=== PATIENT | female | born 1990 | race Caucasian/White ===

== ENCOUNTER 2018-01-22 04:35 | Observation (INO) | payer OTHER ==
[~2018-01-22] VITALS: Ht 157.5 cm; Wt 63.5 kg
[2018-01-22] MEDS ORDERED: PREN1TAB78 MT (04:40)
[2018-01-22] MEDS ORDERED: LACTATED RINGERS 1,000 ML IV SCH (05:10)
[2018-01-22] MEDS ORDERED: TERBUTALINE SULFATE 1MG/ML VIAL SUBCUT NR (05:15)
== END 2018-01-22 06:21 | disposition home or self-care (01) ==
LOC: L&D 04:35
PROVIDERS: ADMIT Specialist; ATTEND Specialist
DX: O62.9 Abnormality of forces of labor, unspecified (principal); Z3A.35 35 weeks gestation of pregnancy
CPT/HCPCS: 96360; 96372; 99281; G0378; J3105; J7120; 59412

== ENCOUNTER 2019-01-13 13:51 | Inpatient (IN) | payer MEDICAID, OTHER ==
[~2019-01-13] VITALS: Ht 167.6 cm; Wt 62.6 kg
[~2019-01-13 13:51] MED LIST: PREN1TAB78 MT
[2019-01-13 14:42] LABS: EOSINOPHILS % 0.6 % (0.0-5.0); MEAN CORPUSCULAR HEMOGLOBIN 31.4 pg (28.0-32.0); MEAN CORPUSCULAR VOLUME 91.8 fL (81.0-99.0); MEAN PLATELET VOLUME 10.5 fl (7.4-10.4); MONOCYTES % 7.4 % (2.0-8.0); PLATELET 164 x1000/uL (130-400); RED BLOOD CELL COUNT 4.14 mill/uL (4.2-5.4); RED CELL DISTRIBUTION WIDTH 13.3 % (11.6-14.6)
[2019-01-13 14:43] LABS: CLARITY URINE CLOUDY (CLEAR); COLOR URINE YELLOW (YELLOW); KETONES URINE NEGATIVE (NEGATIVE); LEUKOCYTE ESTERASE URINE NEGATIVE (NEGATIVE); NITRITE URINE NEGATIVE (NEGATIVE); OCCULT BLOOD URINE NEGATIVE (NEGATIVE); PH URINE 7.5 (4.5-8.0); PROTEIN URINE NEGATIVE (NEGATIVE); SPECIFIC GRAVITY URINE 1.023 (1.005-1.030)
[2019-01-13 14:46] LABS: CHLORIDE 111 mEq/L (98-107)
[2019-01-13 14:51] LABS: PROTHROMBIN TIME 10.7 sec (9.6-11.0)
[2019-01-13] MEDS ORDERED: ONDANSETRON HCL 4MG/2ML INJ IV ONE (16:00)
[2019-01-13] MEDS ORDERED: SODIUM CHLORIDE 0.9% 1,000 ML IV ONE (16:00)
[2019-01-13] MEDS ORDERED: MORPHINE SULFATE 4 MG/ML CPJ (NOT FOR IM USE) IV ONE (16:00)
[2019-01-13] MEDS ORDERED: DOCUSATE SODIUM 100MG CAPSULE PO PRN (17:30)
[2019-01-13] MEDS ORDERED: CLONIDINE 0.1MG TABLET PO PRN (17:30)
[2019-01-13] MEDS ORDERED: ACETAMINOPHEN 325MG TABLET PO PRN (17:30)
[2019-01-13] MEDS ORDERED: MAGNESIUM/ALUMINUM HYDROXIDE/SIMETHICONE 30ML UDC PO PRN (17:30)
[2019-01-13] MEDS ORDERED: CEFTRIAXONE 1 G PREMIX 50 ML IV SCH (17:30)
[2019-01-13] MEDS ORDERED: GUAIFENESIN 200MG/10ML SUGAR FREE UDC PO PRN (17:30)
[2019-01-13] MEDS ORDERED: DIPHENHYDRAMINE 50MG/ML VIAL IV PRN (17:30)
[2019-01-13] MEDS ORDERED: ONDANSETRON HCL 4MG/2ML INJ IV PRN (17:30)
[2019-01-13 17:58] LABS: PHOSPHORUS 3.6 mg/dL (2.5-4.9)
[2019-01-13] MEDS: MORPHINE SULFATE 2 MG/ML CPJ (NOT FOR IM USE) IV PRN (20:18)
[2019-01-13] MEDS ORDERED: CEFTRIAXONE 1 G PREMIX 50 ML IV NR (22:00)
[2019-01-13] MEDS: SODIUM CHLORIDE 0.9% 1,000 ML IV SCH (22:32)
[2019-01-13 23:55] VITALS: BP 132/71
[2019-01-14] VITALS: BP 132/71
[2019-01-14 00:14] LABS: CREATINE KINASE 57 IU/L (26-192)
[2019-01-14 00:15] LABS: CREATINE KINASE MB FRACTION < 1.0 ng/mL (0.5-3.6)
[2019-01-14] MEDS: MORPHINE SULFATE 2 MG/ML CPJ (NOT FOR IM USE) IV PRN ×4 (00:45→19:54)
[2019-01-14] MEDS: SODIUM CHLORIDE 0.9% 1,000 ML IV SCH ×2 (01:20→14:51)
[2019-01-14] MEDS ORDERED: HYDR-4001 PO (02:02)
[2019-01-14 04:00] VITALS: BP 105/67
[2019-01-14 08:00] VITALS: BP 99/42
[2019-01-14 08:35] LABS: BASOPHILS % 0.5 % (0.0-2.0); EOSINOPHILS % 0.7 % (0.0-5.0); HEMATOCRIT. 37.6 % (36.0-48.0); HEMOGLOBIN. 12.5 g/dL (12.0-16.0); LYMPHOCYTES % 35.8 % (20.0-50.0); MEAN CORPUSCULAR HEMOGLOBIN 30.7 pg (28.0-32.0); MEAN CORPUSCULAR VOLUME 92.7 fL (81.0-99.0); MEAN PLATELET VOLUME 10.4 fl (7.4-10.4); MONOCYTES % 6.9 % (2.0-8.0); NEUTROPHILS % 56.1 % (40.0-76.0); PLATELET 212 x1000/uL (130-400); RED BLOOD CELL COUNT 4.06 mill/uL (4.2-5.4); RED CELL DISTRIBUTION WIDTH 13.7 % (11.6-14.6)
[2019-01-14 08:57] LABS: CHLORIDE 114 mEq/L (98-107)
[2019-01-14 09:07] LABS: LDL CHOLESTEROL 66 mg/dL (5-100)
[2019-01-14 09:09] LABS: CREATINE KINASE 50 IU/L (26-192); HDL CHOLESTEROL 43 mg/dL (40-59)
[2019-01-14 09:18] LABS: CREATINE KINASE MB FRACTION < 1.0 ng/mL (0.5-3.6)
[2019-01-14 12:00] VITALS: BP 99/51
[2019-01-14 16:00] VITALS: BP 106/40
[2019-01-14 20:00] VITALS: BP 137/56
[2019-01-14] MEDS: CEFTRIAXONE 1 G PREMIX 50 ML IV SCH (23:50)
[2019-01-15] VITALS: BP 107/63
[2019-01-15] MEDS: MORPHINE SULFATE 2 MG/ML CPJ (NOT FOR IM USE) IV PRN ×2 (00:31→08:48)
[2019-01-15 04:00] VITALS: BP 93/52
[2019-01-15] MEDS: HYDROCODONE/ACETAMINOPHEN 5/325MG TABLET PO PRN ×3 (04:42→17:47)
[2019-01-15 07:33] LABS: BASOPHILS % 0.4 % (0.0-2.0); EOSINOPHILS % 0.8 % (0.0-5.0); HEMATOCRIT. 38.3 % (36.0-48.0); HEMOGLOBIN. 12.8 g/dL (12.0-16.0); LYMPHOCYTES % 45.5 % (20.0-50.0); MEAN CORPUSCULAR HEMOGLOBIN 31.1 pg (28.0-32.0); MEAN PLATELET VOLUME 10.4 fl (7.4-10.4); MONOCYTES % 6.9 % (2.0-8.0); NEUTROPHILS % 46.4 % (40.0-76.0); PLATELET 209 x1000/uL (130-400); RED BLOOD CELL COUNT 4.12 mill/uL (4.2-5.4); RED CELL DISTRIBUTION WIDTH 13.7 % (11.6-14.6)
[2019-01-15 07:36] LABS: CHLORIDE 110 mEq/L (98-107)
[2019-01-15 08:00] VITALS: BP 104/54
[2019-01-15 11:43] VITALS: BP 101/50
[2019-01-15] MEDS ORDERED: MAGNESIUM HYDROXIDE 400MG/5ML 30ML UDC PO SCH (12:45)
[2019-01-15 16:00] VITALS: BP 109/68
[2019-01-15] MEDS: DOCUSATE SODIUM 100MG CAPSULE PO SCH (17:47)
[2019-01-15 20:00] VITALS: BP 110/70
[2019-01-16] VITALS: BP 110/68
[2019-01-16] MEDS: CEFTRIAXONE 1 G PREMIX 50 ML IV SCH (00:04)
[2019-01-16] MEDS: SODIUM CHLORIDE 0.9% 1,000 ML IV SCH (00:04)
[2019-01-16 04:00] VITALS: BP 92/57
[2019-01-16] MEDS: HYDROCODONE/ACETAMINOPHEN 5/325MG TABLET PO PRN (06:00)
[2019-01-16 08:00] VITALS: BP 96/54
[2019-01-16] MEDS: DOCUSATE SODIUM 100MG CAPSULE PO SCH (09:00)
[2019-01-16 12:00] VITALS: BP 98/59
[2019-01-16 15:08] VITALS: BP 98/59
== END 2019-01-16 15:59 | disposition home or self-care (01) ==
LOC: ER 13:51 → 6EST 15:34 → ENRESERV 23:07
PROVIDERS: ADMIT Internal Medicine; ATTEND Emergency Medicine
DX: K80.60 Calculus of gallbladder and bile duct with cholecystitis, unspecified, without obstruction (principal); N39.0 Urinary tract infection, site not specified; Z98.2 Presence of cerebrospinal fluid drainage device
CPT/HCPCS: 36415; 76705; 80048; 80061; 82550; 82553; 83735; 84100; 84443; 93970; 96374; 96375; 99285; J0696; J1200; J2270; J2405

== ENCOUNTER 2019-06-12 00:51 | Inpatient (IN) | payer MEDICAID, OTHER ==
[~2019-06-12] VITALS: Ht 157.5 cm; Wt 71.2 kg
[~2019-06-12 00:51] MED LIST changes: +HYDR-4001 PO
[2019-06-12] MEDS ORDERED: MAGNESIUM/ALUMINUM HYDROXIDE/SIMETHICONE 30ML UDC PO STA (01:45)
[2019-06-12] MEDS ORDERED: ONDANSETRON HCL 4MG/2ML INJ IV STA (01:45)
[2019-06-12] MEDS ORDERED: MORPHINE SULFATE 4 MG/ML CPJ (NOT FOR IM USE) IV STA (01:45)
[2019-06-12] MEDS ORDERED: SODIUM CHLORIDE 0.9% 1,000 ML IV ONE (01:45)
[2019-06-12 02:30] LABS: BASOPHILS % 0.4 % (0.0-2.0); EOSINOPHILS % 0.5 % (0.0-5.0); HEMATOCRIT. 37.7 % (36.0-48.0); HEMOGLOBIN. 12.8 g/dL (12.0-16.0); LYMPHOCYTES % 13.7 % (20.0-50.0); MEAN CORPUSCULAR HEMOGLOBIN 31.4 pg (28.0-32.0); MEAN CORPUSCULAR VOLUME 92.3 fL (81.0-99.0); MONOCYTES % 6.5 % (2.0-8.0); NEUTROPHILS % 78.9 % (40.0-76.0); PLATELET 231 x1000/uL (130-400); RED BLOOD CELL COUNT 4.08 mill/uL (4.2-5.4)
[2019-06-12 02:37] LABS: PROTHROMBIN TIME 10.5 sec (9.6-11.0)
[2019-06-12 02:39] LABS: CHLORIDE 109 mEq/L (98-107)
[2019-06-12] MEDS ORDERED: CEFTRIAXONE 1 G PREMIX 50 ML IV SCH (03:00)
[2019-06-12] MEDS ORDERED: METRONIDAZOLE 500 MG PREMIX 100 ML IV SCH (03:00)
[2019-06-12 05:24] LABS: CLARITY URINE CLOUDY (CLEAR); COLOR URINE YELLOW (YELLOW); KETONES URINE NEGATIVE (NEGATIVE); LEUKOCYTE ESTERASE URINE NEGATIVE (NEGATIVE); NITRITE URINE NEGATIVE (NEGATIVE); OCCULT BLOOD URINE NEGATIVE (NEGATIVE); PROTEIN URINE NEGATIVE (NEGATIVE); SPECIFIC GRAVITY URINE 1.027 (1.005-1.030)
[2019-06-12 09:00] VITALS: BP 100/60
[2019-06-12 09:51] VITALS: BP 122/64
[2019-06-12] MEDS ORDERED: INFLUENZA VIRUS VACCINE(AFLURIA) 0.5ML SYR IM ONE (10:00)
[2019-06-12] MEDS: DEXT 5%/0.45% NACL 1000ML 1,000 ML IV SCH (10:38)
[2019-06-12] MEDS ORDERED: ONDANSETRON HCL 4MG/2ML INJ IV PRN (10:45)
[2019-06-12] MEDS ORDERED: MAGNESIUM/ALUMINUM HYDROXIDE/SIMETHICONE 30ML UDC PO PRN (10:45)
[2019-06-12] MEDS ORDERED: DOCUSATE SODIUM 100MG CAPSULE PO PRN (10:45)
[2019-06-12] MEDS ORDERED: ACETAMINOPHEN 325MG TABLET PO PRN (10:45)
[2019-06-12] MEDS ORDERED: CLONIDINE 0.1MG TABLET PO PRN (10:45)
[2019-06-12 12:00] VITALS: BP 121/64
[2019-06-12] MEDS: HYDROCODONE/ACETAMINOPHEN 5/325MG TABLET PO PRN (14:47)
[2019-06-12 16:00] VITALS: BP 118/60
[2019-06-12 20:00] VITALS: BP 93/44
[2019-06-12 20:30] VITALS: BP 104/58
[2019-06-13] VITALS (7 sets, daily range): BP systolic 91–108; BP diastolic 41–66
[2019-06-13] MEDS: DEXT 5%/0.45% NACL 1000ML 1,000 ML IV SCH ×2 (00:15→13:34)
[2019-06-13] MEDS: CEFTRIAXONE 1 G PREMIX 50 ML IV SCH (03:59)
[2019-06-13] MEDS: HYDROCODONE/ACETAMINOPHEN 5/325MG TABLET PO PRN (05:47)
[2019-06-13 06:22] LABS: BASOPHILS % 0.7 % (0.0-2.0); EOSINOPHILS % 0.9 % (0.0-5.0); HEMATOCRIT. 38.2 % (36.0-48.0); HEMOGLOBIN. 12.7 g/dL (12.0-16.0); LYMPHOCYTES % 44.2 % (20.0-50.0); MEAN CORPUSCULAR HEMOGLOBIN 31.1 pg (28.0-32.0); MEAN CORPUSCULAR VOLUME 93.5 fL (81.0-99.0); MEAN PLATELET VOLUME 10.5 fl (7.4-10.4); MONOCYTES % 7.9 % (2.0-8.0); NEUTROPHILS % 46.3 % (40.0-76.0); PLATELET 212 x1000/uL (130-400); RED BLOOD CELL COUNT 4.09 mill/uL (4.2-5.4); RED CELL DISTRIBUTION WIDTH 13.1 % (11.6-14.6)
[2019-06-13 06:45] LABS: CHLORIDE 114 mEq/L (98-107)
[2019-06-13 06:52] LABS: AMYLASE 48 IU/L (25-115)
[2019-06-13] MEDS: METRONIDAZOLE 500 MG PREMIX 100 ML IV SCH ×2 (15:00→21:07)
[2019-06-13 19:09] LABS: *AMPHETAMINES SCREEN URINE NEGATIVE (NEGATIVE); *BARBITURATES SCREEN URINE NEGATIVE (NEGATIVE); *BENZODIAZEPINES SCREEN URINE NEGATIVE (NEGATIVE); *COCAINE SCREEN URINE NEGATIVE (NEGATIVE)
[2019-06-13 19:10] LABS: CANNABINOID URINE SCREEN NEGATIVE (NEGATIVE); METHADONE URINE SCREEN NEGATIVE (NEGATIVE); OPIATES URINE SCREEN NEGATIVE (NEGATIVE); PHENCYCLIDINE URINE SCREEN NEGATIVE (NEGATIVE)
[2019-06-14] VITALS: BP 103/64
[2019-06-14] MEDS: CEFTRIAXONE 1 G PREMIX 50 ML IV SCH (01:57)
[2019-06-14] MEDS: DEXT 5%/0.45% NACL 1000ML 1,000 ML IV SCH ×2 (01:57→15:17)
[2019-06-14 04:00] VITALS: BP 103/52
[2019-06-14] MEDS: METRONIDAZOLE 500 MG PREMIX 100 ML IV SCH ×3 (05:14→21:13)
[2019-06-14 07:48] LABS: CHLORIDE 113 mEq/L (98-107)
[2019-06-14 08:00] VITALS: BP 85/54
[2019-06-14 08:23] LABS: BASOPHILS % 0.9 % (0.0-2.0); EOSINOPHILS % 0.5 % (0.0-5.0); HEMATOCRIT. 40.2 % (36.0-48.0); HEMOGLOBIN. 13.4 g/dL (12.0-16.0); LYMPHOCYTES % 38.5 % (20.0-50.0); MEAN CORPUSCULAR HEMOGLOBIN 31.4 pg (28.0-32.0); MEAN CORPUSCULAR VOLUME 93.9 fL (81.0-99.0); MEAN PLATELET VOLUME 10.5 fl (7.4-10.4); MONOCYTES % 7.9 % (2.0-8.0); NEUTROPHILS % 52.2 % (40.0-76.0); PLATELET 211 x1000/uL (130-400); RED BLOOD CELL COUNT 4.28 mill/uL (4.2-5.4)
[2019-06-14 12:00] VITALS: BP 92/64
[2019-06-14 16:00] VITALS: BP 91/60
[2019-06-14] MEDS: HYDROCODONE/ACETAMINOPHEN 5/325MG TABLET PO PRN (19:48)
[2019-06-14 20:00] VITALS: BP 103/58
[2019-06-15] VITALS: BP 97/48
[2019-06-15] MEDS: CEFTRIAXONE 1 G PREMIX 50 ML IV SCH (01:25)
[2019-06-15] MEDS: DEXT 5%/0.45% NACL 1000ML 1,000 ML IV SCH (03:07)
[2019-06-15 04:00] VITALS: BP 96/53
[2019-06-15] MEDS: METRONIDAZOLE 500 MG PREMIX 100 ML IV SCH ×2 (05:13→13:09)
[2019-06-15 07:58] LABS: EOSINOPHILS % 1.1 % (0.0-5.0); HEMATOCRIT. 39.5 % (36.0-48.0); HEMOGLOBIN. 13.4 g/dL (12.0-16.0); LYMPHOCYTES % 42.9 % (20.0-50.0); MEAN CORPUSCULAR HEMOGLOBIN 31.4 pg (28.0-32.0); MEAN CORPUSCULAR VOLUME 92.5 fL (81.0-99.0); MONOCYTES % 10.2 % (2.0-8.0); NEUTROPHILS % 44.8 % (40.0-76.0); PLATELET 211 x1000/uL (130-400); RED BLOOD CELL COUNT 4.27 mill/uL (4.2-5.4); RED CELL DISTRIBUTION WIDTH 12.8 % (11.6-14.6)
[2019-06-15 08:00] VITALS: BP 95/49
[2019-06-15 08:27] LABS: CHLORIDE 109 mEq/L (98-107)
[2019-06-15 12:00] VITALS: BP 101/54
[2019-06-15] MEDS ORDERED: LEVO750T46 MT ×2 (15:06→15:11)
[2019-06-15] MEDS ORDERED: METR500T MT ×2 (15:06→15:11)
[2019-06-15 15:57] VITALS: BP 100/55
[2019-06-16] MEDS ORDERED: METRONIDAZOLE 500MG TABLET PO SCH (06:00)
== END 2019-06-15 16:07 | disposition home or self-care (01) ==
LOC: ER 01:19 → 6EST 03:42 → EDBEDREQ 03:45 → EDBEDREQTM 03:45 → ENRESERV 07:48 → 6EST 09:21
PROVIDERS: ADMIT Internal Medicine; ATTEND Internal Medicine
DX: K80.00 Calculus of gallbladder with acute cholecystitis without obstruction (principal); D49.6 Neoplasm of unspecified behavior of brain; E83.51 Hypocalcemia; E87.8 Other disorders of electrolyte and fluid balance, not elsewhere classified; R74.0 Nonspecific elevation of levels of transaminase and lactic acid dehydrogenase [LDH]; Z86.011 Personal history of benign neoplasm of the brain; Z98.2 Presence of cerebrospinal fluid drainage device
CPT/HCPCS: 36415; 76705; 80048; 80053; 80076; 80305; 81003; 82150; 85025; 90686; 96374; 99285; J0696; J2270; J2405; J3490; J7030